=== PATIENT | male | born 1995 | race Caucasian/White ===

== ENCOUNTER 2024-08-01 18:42 | Emergency (ER) | payer SELFPAY ==
[~2024-08-01] VITALS: Ht 188 cm; Wt 97.5 kg
[2024-08-01 19:25] VITALS: PULSE 70; RESP 16; TEMP 98.5; O2SAT 100
== END 2024-08-01 20:36 | disposition left against medical advice (07) ==
LOC: ER 20:36
DX: L72.8 Other follicular cysts of the skin and subcutaneous tissue (principal)